=== PATIENT | male | born 1950 | race Caucasian/White ===

== ENCOUNTER → 2018-03-26 | Outpatient (CLI) | payer MEDICARE | END | disposition home or self-care (01) | LOC: PCVCCLINIC 09:44 | PROVIDERS: ATTEND Nuclear Medicine Nuclear Cardiology | DX: I73.9 Peripheral vascular disease, unspecified (principal); I77.9 Disorder of arteries and arterioles, unspecified; I25.10 Atherosclerotic heart disease of native coronary artery without angina pectoris; E78.2 Mixed hyperlipidemia; I82.409 Acute embolism and thrombosis of unspecified deep veins of unspecified lower extremity; I11.0 Hypertensive heart disease with heart failure; I50.22 Chronic systolic (congestive) heart failure; Z79.82 Long term (current) use of aspirin | CPT/HCPCS: 36415; G0463 ==

== ENCOUNTER → 2018-04-02 | Outpatient (CLI) | payer MEDICARE ==
[~2018-04-02] MED LIST: ACETAMINOPHEN 500 MG TABLET PO ONE; DIAZEPAM 10 MG TABLET. ONE; EPTIFIBATIDE BOLUS 2,000 MCG/ML 10ML VIAL. IV ONE; HEPARIN for ARTERIAL LINE 1,500 ML ONE; HEPARIN for SUB-Q USE 5,000 UNIT/ML VIAL. SQ ONE; IODIXANOL 270 MG/ML 100 ML VIAL. ONE; IOHEXOL 300 MG/ML 100ML VIAL. ONE; IV NORMAL SALINE 1000ML BAG 1,000 ML ONE; LIDOCAINE 1%/EPI 1:100,000 20 ML VIAL. ONE; MIDAZOLAM HCL/PF 2 MG/2 ML VIAL. ONE; fentaNYL PF VIAL 100 MCG/2 ML VIAL ONE; hydrALAZINE 20 MG/ML VIAL. ONE
--- NOTE | 2018-04-02 13:54 | PCVCIMAG ---
EXAM: VENOUS DUPLEX RIGHT LEG INDICATION: Leg pain and swelling. History of DVT. FINDINGS: Right leg: No thrombus in the common femoral, main femoral, or popliteal veins. These veins are compressible with phasic flow. Calf veins are unremarkable where seen. IMPRESSION: No evidence of deep venous thrombosis in the right lower extremity as detailed above. LOC:[id number]
--- NOTE | 2018-04-02 23:07 | PCVCINTER ---
EXAM: 1. CERVICOEPHALIC ARCH AORTOGRAM. 2. BILATERAL CAROTID ANGIOGRAPHY. 3. RIGHT VERTEBROBASILAR ANGIOGRAPHY. 4. BILATERAL RENAL ANGIOGRAPHY. 5. BILATERAL ILEOFEMORAL ANGIOGRAPHY. 6. LEFT SUBCLAVIAN ANGIOGRAPHY. 7. RIGHT LEG ANGIOGRAM. INDICATION: Carotid occlusive disease. Left subclavian steal. Previous left subclavian artery stent. Bilateral carotid stents. Lower extremity pain. Hypertension. Renal atherosclerosis. PROCEDURE: Procedure and risks of the procedures listed above were discussed with the patient and consent obtained. Risks including but not limited to bleeding, infection, stroke, vascular injury, neurologic injury, embolization, allergic reactions, and contrast-induced nephropathy requiring dialysis were discussed as appropriate and consent obtained. Patient was placed on the angiography table. IV conscious sedation was used throughout procedure with appropriate monitoring from 9:15 AM through 10:30 AM. The right groin was prepped and draped in the normal sterile fashion. Ultrasound was used to interrogate the right groin and demonstrate the right common femoral artery. An ultrasound image was saved. Under ultrasound guidance a 21 gauge needle was used to gain access into the right common femoral artery and a 6F vascular sheath was placed. Catheter was placed into the ascending aorta and cervicocephalic aortic arch angiogram performed. Catheter was placed into the suprarenal abdominal aorta and abdominal aortic angiogram performed. Catheter was placed at the aortic bifurcation and bilateral iliofemoral angiography performed. Catheter was placed into the right common carotid artery and right common carotid angiogram performed. Catheter was placed into the left common carotid artery and left common carotid angiogram performed. Catheter was placed into the right subclavian artery and right vertebro-basilar angiogram performed. Catheter was placed in the proximal left subclavian artery left subclavian angiography performed. Catheter was placed into the right renal artery and right renal angiogram performed. Catheter was placed into the left renal artery and left renal angiogram performed. Catheter was placed to the level of the right external iliac artery and right leg runoff and consent obtained. Catheters and wires were removed and hemostasis obtained using manual pressure. No immediate complications. FINDINGS: Cervicocephalic arch aortogram: The innominate artery and left common carotid artery show satisfactory patency. Previous stent proximal left subclavian artery is noted. Occlusion of the lower cervical left vertebral artery. Right vertebral artery is dominant showing adequate patency with cranial directed flow. Right common carotid angiogram: The right A1 segment is hypoplastic. The right middle cerebral distribution is unremarkable. Large posterior communicating artery fills the right posterior cerebral artery. Previous stent distal common carotid artery and proximal internal carotid artery maintains good patency throughout. 90% stenosis origin external carotid artery. Left common carotid angiogram: This injection fills the right and left anterior cerebral and the left middle cerebral is present which are otherwise unremarkable. The cavernous and petrous carotid artery shows good patency. Previous stent distal common carotid artery and proximal internal carotid artery results in maximum 40% in-stent restenosis not felt to be flow-limiting. Right vertebrobasilar angiogram: Irregular plaque proximal right subclavian artery results in 60% stenosis. The right vertebral artery is patent with filling of the left vertebral artery in a retrograde fashion. The basilar artery is patent although minimally decreased in caliber. Both posterior cerebral arteries are patent. Left subclavian angiogram: Previous stent proximal left subclavian artery shows 40% restenosis in its proximal portion. Mid and distal subclavian artery is patent. Proximal cervical left vertebral artery is occluded. Abdominal aortogram: There is one right and one left renal artery. Moderate plaque infrarenal abdominal aorta without significant stenosis. Right renal angiogram: Previous stent proximal vessel is widely patent. Diffuse tapering of the intrarenal arteries is noted. Left renal angiogram: Irregular plaque proximal vessel results in 40% stenosis not felt be flow-limiting. Bilateral iliofemoral angiogram: Previous stent right common iliac artery maintaining good patency. Left common iliac arteries patent. High-grade stenosis origin left internal iliac artery. Right internal iliac arteries occluded. Right and left external iliac arteries show satisfactory patency. Right common femoral artery show satisfactory patency. Eccentric plaque proximal right profunda femoral artery results in 80% stenosis. Complete occlusion mid/distal left common femoral artery. Right leg angiogram: Moderate plaque proximal superficial femoral artery does not cause significant stenosis. Mid and distal superficial femoral artery is patent. Popliteal artery is patent. Previous stent mid superficial femoral artery maintaining good patency. Three-vessel runoff into the foot. IMPRESSION: Previous right internal carotid artery stent maintaining good patency. Note is made right A1 segment is hypoplastic. 40% in-stent restenosis within the midportion of previous left carotid stent as described not felt to be flow-limiting. 60% stenosis proximal [place] right subclavian artery not felt be critically flow-limiting. 40% in-stent restenosis proximal left subclavian artery within prior stent. Previous right renal and right common iliac artery stents maintaining good patency. Right common femoral and superficial femoral arteries show adequate patency throughout. LOC:OFFICE
== END | disposition home or self-care (01) ==
LOC: PCVCIMAG 12:26
PROVIDERS: ATTEND Nuclear Medicine Nuclear Cardiology
DX: I65.23 Occlusion and stenosis of bilateral carotid arteries (principal); I70.1 Atherosclerosis of renal artery; I25.10 Atherosclerotic heart disease of native coronary artery without angina pectoris; I11.0 Hypertensive heart disease with heart failure; I50.22 Chronic systolic (congestive) heart failure; G47.31 Primary central sleep apnea; Z86.010 Personal history of colon polyps; D50.0 Iron deficiency anemia secondary to blood loss (chronic); Z79.01 Long term (current) use of anticoagulants; E78.2 Mixed hyperlipidemia; E11.9 Type 2 diabetes mellitus without complications; Z89.612 Acquired absence of left leg above knee; Z98.890 Other specified postprocedural states; Z87.891 Personal history of nicotine dependence; Z88.8 Allergy status to other drugs, medicaments and biological substances; Z79.899 Other long term (current) drug therapy; Z79.84 Long term (current) use of oral hypoglycemic drugs; Z86.718 Personal history of other venous thrombosis and embolism
CPT/HCPCS: 36223; 36225; 36252; 76937; 93971; 99152; 99153; C1751; C1769; C1894; J1644; J2250; J3010; J3490; J7030; Q9967; 36246; 75630; 75710; J0360; J0690; J1327